=== PATIENT | male | born 1950 ===

== ENCOUNTER 2016-05-15 11:21 | Emergency (ER) | payer MEDICARE, OTHER ==
[2016-05-15] MEDS ORDERED: ACETAMINOPHEN 500 MG TABLET PO ONE (11:39)
--- NOTE | 2016-05-15 11:48 | Emergency Department Record ---
History of Present Illness - General Chief Complaint: Knee injury Stated Complaint: INFECTED KNEE Time Seen by Provider: 05/15/16 11:34 Source: Patient, RN notes reviewed Mode of Arrival: Wheelchair - History of Present Illness Initial Comments: 4 days ago fell and landed on concrete and a board caught him in the left chest and his left knee has an abrasion over the patella and it is abraded and painful to bend his knee and red and swollen. Patient only able to bend his knee 20 degrees. Left chest no skin hanna but painful to palpate.PMH Left rib fractures 2001 multiple Onset/Timin -: Days(s) Type of Injury: Blunt Place: Home Severity: Moderate Severity scale (1-10): 10 Improves With: NSAID Worsens With: Movement, Weight bearing Context: Fall Other Symptoms: Other Associated Symptoms: Able to partially bear weight - Related Data Home Medications Medication Instructions Recorded Confirmed Last Taken Fentanyl 1 patch TOP Q72HR #10 05/15/16 05/15/16 05/14/16 Hydrocodone/Acetaminophen 1 tab PO BID #60 05/15/16 05/15/16 05/15/16 [Hydrocodone/Acetaminophen 7.5mg/325mg] Allergies Allergy/AdvReac Type Severity Reaction Status Date / Time ceftriaxone sodium Allergy Intermediate hives/throat Verified 05/15/16 11:25 [From Rocephin] swelling meperidine HCl [From Demerol] Allergy DIFFICULTY Verified 05/15/16 11:25 SWALLOWING Travel Screening - Travel/Exposure Within Last 30 Days Have you traveled within the last 30 days?: No - Travel/Exposure Within Last Year Have you traveled outside the [place] in the last year?: No - Additonal Travel Details Have you been exposed to anyone with a communicable illness?: No - Travel Symptoms Symptom Screening: None Review of Systems Reviewed: No additional complaints except as noted below Constitutional: Reports: As per HPI. Denies: Chills, Fever, Malaise, Night sweats, Weakness, Weight change Eyes: Reports: As per HPI. Denies: Eye discharge, Eye pain, Photophobia, Vision change ENT: Reports: As per HPI. Denies: Congestion, Dental pain, Ear pain, Epistaxis , Hearing loss, Throat pain Respiratory: Reports: As per HPI. Denies: Cough, Dyspnea, Hemoptysis, Stridor, Wheezes Cardiovascular: Reports: As per HPI. Denies: Arrhythmia, Chest pain, Dyspnea on exertion, Edema, Murmurs, Orthopnea, Palpitations, Paroxysmal nocturnal dyspnea, Rheumatic Fever, Syncope Endocrine: Reports: As per HPI. Denies: Fatigue, Heat or cold intolerance, Polydipsia, Polyuria Gastrointestinal: Reports: As per HPI. Denies: Abdominal pain, Constipation, Diarrhea, Hematemesis, Hematochezia, Melena, Nausea, Vomiting Genitourinary: Reports: As per HPI. Denies: Dysuria, Frequency, Hematuria, Incontinence, Retention, Testicular pain, Testicular mass, Urgency Musculoskeletal: Reports: As per HPI, Arthralgia (left knee). Denies: Back pain , Gout, Joint swelling, Myalgia, Neck pain Skin: Reports: As per HPI, Change in color, Rash, Other (abrasion and angry knee ). Denies: Bruising, Change in hair/nails, Lesions, Pruritus Neurological: Reports: As per HPI. Denies: Abnormal gait, Confusion, Headache, Numbness, Paresthesias, Seizure, Tingling, Tremors, Vertigo, Weakness Psychiatric: Reports: As per HPI. Denies: Anxiety, Auditory hallucinations, Depression, Homicidal thoughts, Suicidal thoughts, Visual hallucinations Hematological/Lymphatic: Reports: As per HPI. Denies: Anemia, Blood Clots, Easy bleeding, Easy bruising, Swollen glands Past Medical History - SOCIAL HISTORY Smoking Status: Never smoker Alcohol Use: None Drug Use: None - RESPIRATORY Hx Respiratory Disorders: No - CARDIOVASCULAR Hx Cardio Disorders: No - NEURO Hx Neuro Disorders: No - GI Hx GI Disorders: No - Hx Genitourinary Disorders: Yes Hx Kidney Stones: Yes - ENDOCRINE Hx Endocrine Disorders: No - MUSCULOSKELETAL Hx Musculoskeletal Disorders: Yes Hx Arthritis: Yes - PSYCH Hx Psych Problems: No - HEMATOLOGY/ONCOLOGY Hx Hematology/Oncology Disorders: No Family Medical History Any Significant Family History?: Yes Hx Cancer: Father, Mother Hx Liver Disease: Father Physical Exam - General General Appearance: Alert, Oriented x3, Cooperative, No acute distress - Head Head exam: Normal inspection - Eye Eye exam: Normal appearance, PERRL Pupils: Normal accommodation - ENT ENT exam: Normal exam, Mucous membranes moist, Normal external ear exam, Normal orophraynx, TM's normal bilaterally Ear exam: Normal external inspection. negative: External canal tenderness Nasal Exam: Normal inspection. negative: Discharge, Sinus tenderness Mouth exam: Normal external inspection, Tongue normal Teeth exam: Normal inspection. negative: Dental caries Throat exam: Normal inspection. negative: Tonsillar erythema, Tonsillar exudate - Neck Neck exam: Normal inspection, Full ROM. negative: Tenderness - Respiratory Respiratory exam: Normal lung sounds bilaterally. negative: Respiratory distress - Cardiovascular Cardiovascular Exam: Regular rate, Normal rhythm, Normal heart sounds - GI/Abdominal GI/Abdominal exam: Soft, Normal bowel sounds. negative: Tenderness - Rectal Rectal exam: Deferred - exam: Deferred - Extremities Extremities exam: Joint swelling, Normal capillary refill, Tenderness (left knee red and swollen and not much effusion), Other (only able to flex knee 20 degrees) - Back Back exam: Reports: Normal inspection, Full ROM. Denies: Muscle spasm, Rash noted, Tenderness - Neurological Neurological exam: Alert, Normal gait, Oriented X3, Reflexes normal - Psychiatric Psychiatric exam: Normal affect, Normal mood - Skin Skin exam: Dry, Intact, Normal color, Warm Course Vital Signs 05/15/16 11:28 Temperature 102.6 F H Pulse Rate 94 H Respiratory 20 Rate Blood Pressure 156/74 Pulse Ox 98 Transfer to [facility] for septic arthritis of the left knee. Discussed the case with ED Dr. Schofield - Reevaluation(s) Reevaluation #1: will drive him to [facility] 05/15/16 14:02 Reevaluation #2: tetnus shot 2 years ago 05/15/16 14:04 Medical Decision Making - Data Complexity MDM Data: Labs Ordered and/or Reviewed (elevated sed rate and c r protein), X- Ray Ordered and/or Reviewed (neg knee and chest shows old rib fractures) - Lab Data Result diagrams: 05/15/16 12:05 05/15/16 12:05 Disposition Clinical Impression: Cellulitis of knee, left Septic arthritis Qualifiers: Septic arthritis location: knee Septic arthritis organism: due to unspecified organism Laterality: left Qualified Code(s): M00.9 - Pyogenic arthritis, unspecified Disposition: Acute Care Hospital Transfer Condition: (2) Stable Forms: Patient Portal Access
[2016-05-15] MEDS: 0.9 % SODIUM CHLORIDE 1000ML 1,000 ML IV PRN (11:57)
[2016-05-15] MEDS: IBUPROFEN 600 MG TABLET PO ONE (11:57)
[2016-05-15 12:23] LABS: BASO % 0.2 % (0-6); EOS % 1.7 % (0-6); GRAN % 77.4 % (47-80); HEMATOCRIT 36.5 % (42.0-52.0); HEMOGLOBIN 12.4 gm/dl (14.0-18.0); LYMPH % 9.6 % (16-45); MEAN CELL VOLUME 94.1 fl (81-97); MEAN PLATELET VOLUME 8.9 fl (7.4-10.4); MONO % 11.1 % (0-9); PLATELET COUNT 197 K/uL (130-400); RED BLOOD COUNT 3.88 M/uL (4.40-5.70); RED CELL DISTRIBUTION WIDTH 14.7 % (11.5-14.5); WHITE BLOOD COUNT W/O DIFF 13.6 K/uL (4.2-12.2)
[2016-05-15 12:24] LABS: MEAN CORPUSCULAR HEMOGLOBIN 31.9 pg (27-33)
[2016-05-15 12:38] LABS: ANION GAP 8.5 (7-16); BLOOD UREA NITROGEN 16 mg/dL (9-20); C-REACTIVE PROTEIN 7.7 mg/dL (0.0-0.9); CARBON DIOXIDE 25.5 mmol/L (22-30); CREATININE 1.2 mg/dL (0.66-1.25); EST GLOMERULAR FILTRATION RATE > 60 ml/min; GLUCOSE,RANDOM 143 mg/dL (70-110)
[2016-05-15 13:00] LABS: ERYTHROCYTE SEDIMENTATION RATE 62 mm/hr (0-20)
[2016-05-15] MEDS: CEFTRIAXONE SODIUM 1 GM in 0.9 % SODIUM CHLORIDE 100ML 100 ML IVPB ONE (14:03)
== END 2016-05-15 15:03 | disposition short-term general hospital (02) ==
LOC: ER 11:21
DX: M00.9 Pyogenic arthritis, unspecified (principal); S80.212A Abrasion, left knee, initial encounter; L03.116 Cellulitis of left lower limb; R07.89 Other chest pain; W19.XXXA Unspecified fall, initial encounter; Y92.009 Unspecified place in unspecified non-institutional (private) residence as the place of occurrence of the external cause
CPT/HCPCS: 71020; 80048; 85025; 85651; 86140; 96365; 99285